=== PATIENT | female | born 1970 | race Caucasian/White ===

== ENCOUNTER → 2017-03-10 | Outpatient (CLI) | payer BC ==
[~2017-03-10] MED LIST: CERTAGEN PO
== END | disposition home or self-care (01) ==
LOC: CECH 13:26
DX: R00.2 Palpitations (principal); R01.1 Cardiac murmur, unspecified; I34.0 Nonrheumatic mitral (valve) insufficiency; I36.1 Nonrheumatic tricuspid (valve) insufficiency
CPT/HCPCS: 93306